=== PATIENT | male | born 1960 | race African-American/Black ===

== ENCOUNTER 2018-01-24 18:21 | Inpatient (IN) | payer OTHER ==
[2018-01-24 20:21] VITALS: BMI 25.7
--- NOTE | 2018-01-24 20:50 | HP ---
COWS - Scale Resting Pulse: 1= [place] 81-100 Sweatin= Chills/Flushing Restless Observation: 1= Difficult to Sit Still Pupil Size: 0= Normal to Room Light Bone or Joint Aches: 1= Mild Discomfort Runny Nose/ Eye Tearin= Runny Nose/Eyes GI Upset > 30mins: 2= Nausea/Diarrhea Tremor Observation: 1= Tremor [place], Not Seen Yawning Observation: 1= 1-2x During Session Anxiety or Irritability: 2=Irritable/Anxious Goose Flesh Skin: 0=Smooth Skin COWS Score: 12 Admission ROS S - HPI Chief Complaint: opioid withdrawal symptoms Allergies/Adverse Reactions: Allergies Allergy/AdvReac Type Severity Reaction Status Date / Time No Known Allergies Allergy Verified 01/24/18 21:02 History of Present Illness: 58 yo male with hx of heroin dependence is here seeking detox for the first time. Patient was recently discharged from [facility] today after a CHF exacerbation, during his stay patient was kept on methadone, and was referred for detox after his last hospital admission. PMHX: HTN, CHF, anemia, HDL, STENT x2 (2012), A-fib. Denies any psychiatric problems. Denies suicidal / homicidal ideation or hx of suicide attempts. Denies hx of seizures, blackouts or overdose. Longest period of sobriety 2 years reports recently relapsed two months ago. Exam Limitations: No Limitations - Ebola screening Have you been sick,other than usual withdrawal symptoms: No - Review of Systems Constitutional: Chills, Loss of Appetite, Changes in sleep EENT: reports: Dental Problems (missing teeth) Respiratory: reports: See HPI Cardiac: reports: Lightheadedness GI: reports: Diarrhea, Poor Appetite, Poor Fluid Intake, Abdominal cramping : reports: No Symptoms Reported Musculoskeletal: reports: Back Pain Integumentary: reports: No Symptoms Reported Neuro: reports: Headache Endocrine: reports: Increased Thirst Hematology: reports: See HPI Psychiatric: reports: Orientated x3, Anxious, Depressed Other Systems: Reviewed and Negative Patient History - Patient Medical History Hx Anemia: Yes Hx Asthma: No Hx Chronic Obstructive Pulmonary Disease (COPD): No Hx Cancer: No Hx Cardiac Disorders: Yes (hx of STENT x 2, A-fib, CHF) Hx Congestive Heart Failure: Yes Hx Hypertension: Yes Hx Hypercholesterolemia: Yes Hx Pacemaker: Yes (Defibrilator (L)) HX Cerebrovascular Accident: No Hx Seizures: No Hx Dementia: No Hx Diabetes: No Hx Gastrointestinal Disorders: No Hx Liver Disease: No Hx Genitourinary Disorders: No Hx Sexually Transmitted Disorders: No Hx Renal Disease (ESRD): No Hx Thyroid Disease: No Hx Human Immunodeficiency Virus (HIV): No (Last tested three weeks ago ) Hx Hepatitis C: No Hx Depression: Yes Hx Suicide Attempt: No Hx Bipolar Disorder: No Hx Schizophrenia: No - Patient Surgical History Past Surgical History: Yes Hx Neurologic Surgery: No Hx Cataract Extraction: No Hx Cardiac Surgery: Yes (STENT x 2 (2012), Defibrilator placement (2014)) Hx Lung Surgery: No Hx Breast Surgery: No Hx Breast Biopsy: No Hx Abdominal Surgery: No Hx Appendectomy: No Hx Cholecystectomy: No Hx Genitourinary Surgery: No Hx Orthopedic Surgery: No Anesthesia Reaction: No - PPD History Previous Implant?: No (TB expose tx with INH (2009)) Documented Results: Positive w/o proof PPD to be Administered?: No - Smoking Cessation Smoking history: Current every day smoker Have you smoked in the past 12 months: Yes Aproximately how many cigarettes per day: 10 Hx Chewing Tobacco Use: No Initiated information on smoking cessation: Yes 'Breaking Loose' booklet given: 01/24/18 - Substance & Tx. History Hx Alcohol Use: Yes Hx Substance Use: Yes Substance Use Type: Heroin Hx Substance Use Treatment: No - Substances Abused Heroin Route: Inhalation Frequency: Daily Amount used: 8 bags Age of first use: 12 Date of Last Use: 01/14/18 (Patient was admitted to [facility] for CHF exacerbation) Family Disease History - Family Disease History Family History: Unable to Obtain Admission Physical Exam S - Vital Signs Vital Signs: Vital Signs - 24 hr 01/24/18 20:20 Temperature 98.0 F Pulse Rate 90 Respiratory 18 Rate Blood Pressure 125/68 - Physical General Appearance: Yes: Disheveled, Mild Distress, Thin, Sweating, Anxious HEENTM: Yes: EOMI, Hearing grossly Normal, Normal ENT Inspection, Normal Voice, SHIRA, Pharynx Normal, Tm's normal, Rhinorrhea, Other (poor dentitionn) Respiratory: Yes: Chest Non-Tender, Lungs Clear, Normal Breath Sounds, No Respiratory Distress, No Accessory Muscle Use Neck: Yes: Within Normal Limits Breast: Yes: Breast Exam Deferred Cardiology: Yes: Regular Rate, Gallop/S3 Abdominal: Yes: Normal Bowel Sounds, Non Tender, Soft, Protuberent Genitourinary: Yes: Within Normal Limits Back: Yes: Normal Inspection Musculoskeletal: Yes: full range of Motion, Gait Steady, Pelvis Stable, Back pain Extremities: Yes: Normal Capillary Refill, Normal Inspection, Normal Range of Motion, Non-Tender Neurological: Yes: customer counter associate II-XII NML intact, Fully Oriented, Alert, Motor Strength 5/5, Normal Response, Depressed Affect Integumentary: Yes: Normal Color, Warm, Diaphoresis Lymphatic: Yes: Within Normal Limits - Diagnostic (1) CHF (congestive heart failure) Current Visit: Yes Status: Chronic Qualifiers: Heart failure type: unspecified (2) HTN (hypertension) Current Visit: Yes Status: Chronic Qualifiers: Hypertension type: essential hypertension Qualified Code(s): I10 - Essential (primary) hypertension (3) Atrial fibrillation Current Visit: Yes Status: Chronic Qualifiers: Atrial fibrillation type: unspecified Qualified Code(s): I48.91 - Unspecified atrial fibrillation (4) Presence of cardiac defibrillator Current Visit: Yes Status: Chronic (5) Hyperlipidemia Current Visit: Yes Status: Acute (6) History of treatment for tuberculosis Current Visit: Yes Status: Chronic (7) Opioid dependence with withdrawal Current Visit: Yes Status: Acute Cleared for Admission [facility] - Detox or Rehab [facility] Level of Care: Medically Managed Detox Regimen/Protocol: Methadone [facility] Breath Alcohol Content Breath Alcohol Content: 0 Urine Drug Screen - Results Drug Screen Negative: No Urine Drug Screen Results: MTD-Methadone
[2018-01-24] MEDS ORDERED: MAG HYDROX/AL HYDROX/SIMETH 30 ML UNIT-DOSE CUP PO PRN (21:03)
[2018-01-24] MEDS ORDERED: P-EPHED 60MG/TRIPROLIDI 2.5MG TABLET PO PRN (21:03)
[2018-01-24] MEDS ORDERED: guaiFENesin/D-METHORPHAN HB 10 ML UNIT-DOSE CUPS PO PRN (21:03)
[2018-01-24] MEDS ORDERED: MAGNESIUM HYDROX 2400MG/30ML ORAL SUSPENSION 30 ML CUP PO PRN (21:03)
[2018-01-24] MEDS ORDERED: MAGNESIUM CITRATE 300 ML BOTTLE PO PRN (21:03)
[2018-01-24] MEDS ORDERED: MENTHOL/PHENOL 1 EACH UD MM PRN (21:03)
[2018-01-24] MEDS ORDERED: LOPERAMIDE HCL 2 MG CAPSULE PO PRN (21:03)
[2018-01-24] MEDS ORDERED: IBUPROFEN 400 MG TABLET (FP) PO PRN (21:03)
[2018-01-24] MEDS ORDERED: METHADONE HCL 10 MG TABLET (FOR DETOX USE ONLY) PO ONE ×2 (22:15→23:00)
[2018-01-24] MEDS ORDERED: NITROGLYCERIN SUBLINGUAL 1/150 0.4 MG TAB SL PRN (22:30)
--- NOTE | 2018-01-24 22:40 | PN ---
S Progress Note Note: Patient missed today's elequis dose. PM dose 5 mg ordered,. Continue to monitor.
[2018-01-24] MEDS: ASPIRIN 81 MG CHEWABLE TABLETS PO SCH (23:05)
[2018-01-24] MEDS: THIAMINE HCL 100 MG TABLET (FP) PO SCH (23:05)
[2018-01-24] MEDS: APIXABAN 5 MG TABLET PO SCH (23:07)
[2018-01-24] MEDS: MELATONIN 5 MG TABLETS PO PRN (23:14)
[2018-01-24] MEDS: ACETAMINOPHEN 325 MG TABLET (FP) PO PRN (23:15)
[2018-01-25 01:23] LABS: URINE APPEARANCE CLEAR; URINE BILIRUBIN NEGATIVE (<2.0 mg/dL); URINE COLOR LTYELLOW; URINE GLUCOSE (UA) NEGATIVE (NEGATIVE); URINE KETONE NEGATIVE (NEGATIVE); URINE LEUK ESTERASE NEGATIVE (NEGATIVE); URINE NITRITE NEGATIVE (NEGATIVE); URINE PROTEIN NEGATIVE (NEGATIVE); URINE UROBILINOGEN NEGATIVE mg/dL (0.2-1.0)
[2018-01-25] MEDS ORDERED: APIXABAN 5 MG TABLET PO SCH (10:00)
[2018-01-25] MEDS ORDERED: METHADONE HCL 10 MG TABLET (FOR DETOX USE ONLY) PO ONE (10:00)
[2018-01-25] MEDS ORDERED: FERROUS SO4 325 MG TABLET (FP) PO SCH (10:00)
[2018-01-25] MEDS: ASPIRIN 81 MG CHEWABLE TABLETS PO SCH (10:09)
[2018-01-25] MEDS: SPIRONOLACTONE 25 MG TABLET (FP) PO SCH (10:09)
[2018-01-25] MEDS: METOPROLOL TARTRATE 25 MG TABLET (FP) PO SCH (10:10)
[2018-01-25] MEDS: PRENATAL VITAMINS W/ FOLIC ACID TABLET (FP) PO SCH (10:10)
[2018-01-25] MEDS: LISINOPRIL 10 MG TABLET (FP) PO SCH (10:10)
[2018-01-25] MEDS: NICOTINE 14 MG/24 HOURS TOPICAL PATCH TD SCH (10:10)
[2018-01-25] MEDS: FUROSEMIDE 40 MG TABLET (FP) PO SCH (10:10)
[2018-01-25] MEDS: ISOSORBIDE MONONITRATE 30 MG TAB.SR.24H (FP) PO SCH (10:10)
[2018-01-25 10:17] LABS: CHLORIDE 109 mmol/L (98-107); POTASSIUM 4.5 mmol/L (3.5-5.1); SODIUM 145 mmol/L (136-145)
[2018-01-25 10:32] LABS: ALBUMIN 2.9 g/dl (3.4-5.0); ALK PHOS 78 U/L (45-117); ANION GAP 8 MMOL/L (8-16); BILIRUBIN,TOTAL 0.7 mg/dL (0.2-1.0); BLOOD UREA NITROGEN 23 mg/dL (7-18); CALCIUM 8.9 mg/dL (8.5-10.1); CO2 28 mmol/L (21-32); CREATININE 0.9 mg/dL (0.7-1.3); GLUCOSE,RANDOM 69 mg/dL (74-106); SGOT/AST 16 U/L (15-37); SGPT/ALT 17 U/L (12-78)
[2018-01-25 10:33] LABS: HEMATOCRIT 29.3 % (35.4-49); HEMOGLOBIN 9.8 GM/dL (11.7-16.9); MCH 25.3 pg (25.7-33.7); MCHC 33.3 g/dl (32.0-35.9); MEAN PLT VOLUME 9.1 fl (7.5-11.1); PLATELET COUNT 168 K/MM3 (134-434); RBC 3.85 M/mm3 (4.00-5.60); RDW 26.6 % (11.9-15.9); WHITE BLOOD COUNT 3.1 K/mm3 (4.0-10.0)
[2018-01-25] MEDS: APIXABAN 5 MG TABLET PO SCH ×2 (11:00→22:10)
--- NOTE | 2018-01-25 12:14 | CONSULT ---
[facility] Psychiatric Consult - Data Date of interview: 01/25/18 Admission source: [facility] Identifying data: First admission to [facility] for this 58 y/o AA male seeking detox treatment on for opioid dependence.Patientis single without dependents,homeless,unemployed and evasive about his source of income. Substance Abuse History: Confirmed by patient in this interview : Smoking history: Current every day smoker. Have you smoked in the past 12 months: Yes. Aproximately how many cigarettes per day: 10. Hx Chewing Tobacco Use: No. Initiated information on smoking cessation: Yes. 'Breaking Loose' booklet given : 01/24/18. - Substance & Tx. History. Hx Alcohol Use: Yes. Hx Substance Use : Yes. Substance Use Type: Heroin. Hx Substance Use Treatment: No. - Substances Abused. Heroin. Route: Inhalation. Frequency: Daily. Amount used: 8 bags. Age of first use: 12. Date of Last Use: 01/14/18 (Patient was admitted to [facility] for CHF exacerbation) Medical History: Multiple co-morbidities : hypertension,dyslipidemia,anemia,CHF, atrial fibrillation (pacemaker in place),cardiac stents and a history of treatment for tuberculosis (INH protocol) in 2009. Psychiatric History: Patient denies. Physical/Sexual Abuse/Trauma History: No history reported. Additional Comment: Urine Drug Screen Results: MTD-Methadone.Noted. Mental Status Exam - Mental Status Exam Alert and Oriented to: Time, Place, Person Cognitive Function: Grossly Intact Patient Appearance: Well Groomed Mood: Angry, Hostile, Withdrawn, Irritable Affect: Mood Congruent, Constricted Patient Behavior: Fatigued, Uncooperative, Guarded Speech Pattern: Clear Voice Loudness: Normal Thought Process: Goal Oriented Thought Disorder: Not Present Hallucinations: Denies Suicidal Ideation: Denies Homicidal Ideation: Denies Insight/Judgement: Poor Sleep: Well Appetite: Good Gait/Station: Other (not observed; patient declines to get out of bed as instructed by interviewer) Psychiatric Findings - Problem List ([facility] 1, 2,3) (1) Opioid dependence with withdrawal Current Visit: Yes Status: Acute (2) Nicotine dependence Current Visit: Yes Status: Acute - Initial Treatment Plan Initial Treatment Plan: Psychoeducation.Sleep hygiene.Detoxification.Observation.
--- NOTE | 2018-01-25 16:35 | PN ---
BHS COWS - Scale Resting Pulse: 1= [place] 81-100 Sweatin= Chills/Flushing Restless Observation: 1= Difficult to Sit Still Pupil Size: 0= Normal to Room Light Bone or Joint Aches: 2= Severe Diffuse Aches Runny Nose/ Eye Tearin= None GI Upset > 30mins: 0= None Tremor Observation of Outstretched Hands: 2= Slight Tremor Visible Yawning Observation: 1= 1-2x During Session Anxiety or Irritability: 2=Irritable/Anxious Goose Flesh Skin: 3=Piloerection COWS Score: 13 BHS Progress Note (SOAP) Subjective: Body Aches, Interrupted Sleep, Tremors. Objective: PATIENT A & O X 3, OBSERVED AMBULATING ON UNIT. NO ACUTE DISTRESS. PATIENT DENIES CHEST PAIN. PATIENT REPORTS THAT HE WAS LAST EVALUATED BY MEDICAL PROVIDER FOR HISTORY OF CARDIAC DISEASE, INCLUDING A-FIB, APPROX. 2 MONTHS AGO. 01/25/18 16:31 Vital Signs Temperature 97.0 F L 01/25/18 15:36 Pulse Rate 80 01/25/18 15:36 Respiratory Rate 18 01/25/18 15:36 Blood Pressure 103/55 01/25/18 15:36 O2 Sat by Pulse Oximetry (%) Laboratory Tests 01/24/18 01/25/18 01/25/18 22:54 08:00 08:00 WBC 3.1 L RBC 3.85 L Hgb 9.8 L Hct 29.3 L MCV 76.0 L MCH 25.3 L MCHC 33.3 RDW 26.6 H Plt Count 168 MPV 9.1 Sodium 145 Potassium 4.5 Chloride 109 H Carbon Dioxide 28 Anion Gap 8 BUN 23 H Creatinine 0.9 Creat Clearance w eGFR > 60 Random Glucose 69 L Calcium 8.9 Total Bilirubin 0.7 AST 16 ALT 17 Alkaline Phosphatase 78 Total Protein 6.0 L Albumin 2.9 L Urine Color Ltyellow Urine Appearance Clear Urine pH 6.0 Ur Specific [place] 1.015 Urine Protein Negative Urine Glucose (UA) Negative Urine Ketones Negative Urine Blood Negative Urine Nitrite Negative Urine Bilirubin Negative Urine Urobilinogen Negative Ur Leukocyte Esterase Negative RPR Titer 01/25/18 08:00 WBC RBC Hgb Hct MCV MCH MCHC RDW Plt Count MPV Sodium Potassium Chloride Carbon Dioxide Anion Gap BUN Creatinine Creat Clearance w eGFR Random Glucose Calcium Total Bilirubin AST ALT Alkaline Phosphatase Total Protein Albumin Urine Color Urine Appearance Urine pH Ur Specific [place] Urine Protein Urine Glucose (UA) Urine Ketones Urine Blood Urine Nitrite Urine Bilirubin Urine Urobilinogen Ur Leukocyte Esterase RPR Titer Nonreactive LABS NOTED. 01/25/18 16:32 Assessment: 01/25/18 16:31 WITHDRAWAL SYMPTOMS. LEUKOPENIA. ANEMIA. 01/25/18 16:34 Plan: CONTINUE DETOX. INCREASE FEOSOL TO BIDWM. REPEAT CBC ON 01/27/2018 FOR ADMISSION ABNORMALITIES.
[2018-01-25] MEDS: FERROUS SO4 325 MG TABLET (FP) PO SCH (18:12)
--- NOTE | 2018-01-25 18:50 | EKG ---
Test Reason : Blood Pressure : / mmHG Vent. Rate : 075 BPM Atrial Rate : 070 BPM P-R Int : 000 ms QRS Dur : 128 ms QT Int : 422 ms P-R-T Axes : 000 -46 172 degrees QTc Int : 471 ms ATRIAL FIBRILLATION LEFT AXIS DEVIATION NON-SPECIFIC INTRA-VENTRICULAR CONDUCTION BLOCK T WAVE ABNORMALITY, CONSIDER LATERAL ISCHEMIA ABNORMAL ECG WHEN COMPARED WITH ECG OF 24-JAN-2018 22:30, NONSPECIFIC T WAVE ABNORMALITY NOW EVIDENT IN INFERIOR LEADS Confirmed by GISEL DOMINGO MD ([id number]) on 01/25/2018 6:50:03 PM Referred By: Azael Nur Confirmed By:GISEL DOMINGO MD
--- NOTE | 2018-01-25 19:05 | EKG ---
Test Reason : Blood Pressure : / mmHG Vent. Rate : 104 BPM Atrial Rate : 117 BPM P-R Int : 000 ms QRS Dur : 124 ms QT Int : 364 ms P-R-T Axes : 000 -53 118 degrees QTc Int : 478 ms ATRIAL FIBRILLATION WITH RAPID VENTRICULAR RESPONSE LEFT ANTERIOR FASCICULAR BLOCK ABNORMAL ECG NO PREVIOUS ECGS AVAILABLE Confirmed by GISEL DOMINGO MD ([id number]) on 01/25/2018 7:05:16 PM Referred By: Azael Nur Confirmed By:GISEL DOMINGO MD
[2018-01-25] MEDS: ATORVASTATIN CA 80 MG TABLET (FP) PO SCH (22:10)
[2018-01-25] MEDS: AMMONIUM LACTATE 12% LOTION 225 GM BOTTLE TP SCH (22:10)
[2018-01-25] MEDS: THIAMINE HCL 100 MG TABLET (FP) PO SCH (22:10)
[2018-01-25] MEDS: MELATONIN 5 MG TABLETS PO PRN (22:11)
[2018-01-26] MEDS: FERROUS SO4 325 MG TABLET (FP) PO SCH ×2 (07:54→18:01)
[2018-01-26] MEDS ORDERED: METHADONE HCL 5 MG TABLET (FOR DETOX USE ONLY) PO ONE (10:00)
[2018-01-26] MEDS: METOPROLOL TARTRATE 25 MG TABLET (FP) PO SCH (10:07)
[2018-01-26] MEDS: PRENATAL VITAMINS W/ FOLIC ACID TABLET (FP) PO SCH (10:07)
[2018-01-26] MEDS: ISOSORBIDE MONONITRATE 30 MG TAB.SR.24H (FP) PO SCH (10:07)
[2018-01-26] MEDS: LISINOPRIL 10 MG TABLET (FP) PO SCH (10:07)
[2018-01-26] MEDS: ASPIRIN 81 MG CHEWABLE TABLETS PO SCH (10:07)
[2018-01-26] MEDS: APIXABAN 5 MG TABLET PO SCH ×2 (10:07→22:24)
[2018-01-26] MEDS: FUROSEMIDE 40 MG TABLET (FP) PO SCH (10:07)
[2018-01-26] MEDS: SPIRONOLACTONE 25 MG TABLET (FP) PO SCH (10:07)
[2018-01-26] MEDS: NICOTINE 14 MG/24 HOURS TOPICAL PATCH TD SCH (10:08)
[2018-01-26] MEDS: AMMONIUM LACTATE 12% LOTION 225 GM BOTTLE TP SCH ×2 (10:08→22:06)
--- NOTE | 2018-01-26 15:21 | PN ---
BHS COWS - Scale Resting Pulse: 0= MD 80 or Below Sweatin= Chills/Flushing Restless Observation: 3= Extraneous Movement Pupil Size: 1= Pupils >than Normal Bone or Joint Aches: 2= Severe Diffuse Aches Runny Nose/ Eye Tearin= Runny Nose/Eyes GI Upset > 30mins: 3= Vomiting/Diarrhea Tremor Observation of Outstretched Hands: 2= Slight Tremor Visible Yawning Observation: 1= 1-2x During Session Anxiety or Irritability: 2=Irritable/Anxious Goose Flesh Skin: 0=Smooth Skin COWS Score: 17 S Progress Note (SOAP) Subjective: Interrupted sleep, diarrhea, nausea, chills Objective: 01/26/18 15:20 Last Vital Signs Temp Pulse Resp BP Pulse Ox 97.1 F L 76 18 104/63 01/26/18 15:03 01/26/18 15:03 01/26/18 15:03 01/26/18 15:03 Laboratory Tests 01/24/18 01/25/18 01/25/18 22:54 08:00 08:00 WBC 3.1 L RBC 3.85 L Hgb 9.8 L Hct 29.3 L MCV 76.0 L MCH 25.3 L MCHC 33.3 RDW 26.6 H Plt Count 168 MPV 9.1 Sodium 145 Potassium 4.5 Chloride 109 H Carbon Dioxide 28 Anion Gap 8 BUN 23 H Creatinine 0.9 Creat Clearance w eGFR > 60 Random Glucose 69 L Calcium 8.9 Total Bilirubin 0.7 AST 16 ALT 17 Alkaline Phosphatase 78 Total Protein 6.0 L Albumin 2.9 L Urine Color Ltyellow Urine Appearance Clear Urine pH 6.0 Ur Specific [place] 1.015 Urine Protein Negative Urine Glucose (UA) Negative Urine Ketones Negative Urine Blood Negative Urine Nitrite Negative Urine Bilirubin Negative Urine Urobilinogen Negative Ur Leukocyte Esterase Negative RPR Titer 01/25/18 08:00 WBC RBC Hgb Hct MCV MCH MCHC RDW Plt Count MPV Sodium Potassium Chloride Carbon Dioxide Anion Gap BUN Creatinine Creat Clearance w eGFR Random Glucose Calcium Total Bilirubin AST ALT Alkaline Phosphatase Total Protein Albumin Urine Color Urine Appearance Urine pH Ur Specific [place] Urine Protein Urine Glucose (UA) Urine Ketones Urine Blood Urine Nitrite Urine Bilirubin Urine Urobilinogen Ur Leukocyte Esterase RPR Titer Nonreactive Labs reviewed: bun 23 Assessment: 01/26/18 15:21 Withdrawal symptoms Noted with Azotemia Plan: Continue detox Azotemia: encouraged PO water hydration
[2018-01-26] MEDS: ACETAMINOPHEN 325 MG TABLET (FP) PO PRN (18:03)
[2018-01-26] MEDS: THIAMINE HCL 100 MG TABLET (FP) PO SCH (22:24)
[2018-01-26] MEDS: ATORVASTATIN CA 80 MG TABLET (FP) PO SCH (22:24)
[2018-01-27] MEDS ORDERED: METHADONE HCL 5 MG TABLET (FOR DETOX USE ONLY) PO ONE (10:00)
[2018-01-27] MEDS: ISOSORBIDE MONONITRATE 30 MG TAB.SR.24H (FP) PO SCH (10:16)
[2018-01-27] MEDS: LISINOPRIL 10 MG TABLET (FP) PO SCH (10:16)
[2018-01-27] MEDS: ASPIRIN 81 MG CHEWABLE TABLETS PO SCH (10:16)
[2018-01-27] MEDS: AMMONIUM LACTATE 12% LOTION 225 GM BOTTLE TP SCH ×2 (10:16→22:19)
[2018-01-27] MEDS: FUROSEMIDE 40 MG TABLET (FP) PO SCH (10:16)
[2018-01-27] MEDS: diazePAM 5 MG TABLET PO PRN ×2 (10:16→18:08)
[2018-01-27] MEDS: METOPROLOL TARTRATE 25 MG TABLET (FP) PO SCH (10:16)
[2018-01-27] MEDS: PRENATAL VITAMINS W/ FOLIC ACID TABLET (FP) PO SCH (10:16)
[2018-01-27] MEDS: APIXABAN 5 MG TABLET PO SCH ×2 (10:16→22:19)
[2018-01-27] MEDS: FERROUS SO4 325 MG TABLET (FP) PO SCH ×2 (10:16→18:06)
[2018-01-27] MEDS: SPIRONOLACTONE 25 MG TABLET (FP) PO SCH (10:16)
[2018-01-27] MEDS: NICOTINE 14 MG/24 HOURS TOPICAL PATCH TD SCH (10:17)
[2018-01-27 10:26] LABS: HEMATOCRIT 30.7 % (35.4-49); HEMOGLOBIN 9.9 GM/dL (11.7-16.9); MCH 24.8 pg (25.7-33.7); MCHC 32.3 g/dl (32.0-35.9); MEAN CELL VOLUME 76.7 fl (80-96); MEAN PLT VOLUME 9.1 fl (7.5-11.1); PLATELET COUNT 181 K/MM3 (134-434); RDW 26.6 % (11.9-15.9); WHITE BLOOD COUNT 4.3 K/mm3 (4.0-10.0)
--- NOTE | 2018-01-27 11:12 | PN ---
BHS Progress Note (SOAP) Subjective: MUSCLE ACHES,HOT/COLD CHILLS,FATIGUE. Objective: 01/27/18 11:09 Vital Signs 01/27/18 01/27/18 06:09 09:17 Temperature 97 F L 97.7 F Pulse Rate 69 95 H Respiratory 18 20 Rate Blood Pressure 137/80 131/86 Laboratory Tests 01/24/18 01/25/18 01/25/18 22:54 08:00 08:00 WBC 3.1 L RBC 3.85 L Hgb 9.8 L Hct 29.3 L MCV 76.0 L MCH 25.3 L MCHC 33.3 RDW 26.6 H Plt Count 168 MPV 9.1 Neutrophils % Lymphocytes % Nucleated RBC % Sodium 145 Potassium 4.5 Chloride 109 H Carbon Dioxide 28 Anion Gap 8 BUN 23 H Creatinine 0.9 Creat Clearance w eGFR > 60 Random Glucose 69 L Calcium 8.9 Total Bilirubin 0.7 AST 16 ALT 17 Alkaline Phosphatase 78 Total Protein 6.0 L Albumin 2.9 L Urine Color Ltyellow Urine Appearance Clear Urine pH 6.0 Ur Specific [place] 1.015 Urine Protein Negative Urine Glucose (UA) Negative Urine Ketones Negative Urine Blood Negative Urine Nitrite Negative Urine Bilirubin Negative Urine Urobilinogen Negative Ur Leukocyte Esterase Negative RPR Titer 01/25/18 01/27/18 08:00 07:00 WBC 4.3 RBC 4.00 Hgb 9.9 L Hct 30.7 L MCV 76.7 L MCH 24.8 L MCHC 32.3 RDW 26.6 H Plt Count 181 MPV 9.1 Neutrophils % No Result Required. Lymphocytes % No Result Required. Nucleated RBC % 0 Sodium Potassium Chloride Carbon Dioxide Anion Gap BUN Creatinine Creat Clearance w eGFR Random Glucose Calcium Total Bilirubin AST ALT Alkaline Phosphatase Total Protein Albumin Urine Color Urine Appearance Urine pH Ur Specific [place] Urine Protein Urine Glucose (UA) Urine Ketones Urine Blood Urine Nitrite Urine Bilirubin Urine Urobilinogen Ur Leukocyte Esterase RPR Titer Nonreactive REPEAT LABS NOTED. PT ON FEOSOL Assessment: 01/27/18 11:10 WITHDRAWAL SX Plan: CONTINUE DETOX FOLLOW UP WITH [facility] AFTER DETOX FOR MEDICAL MANAGEMENT.
[2018-01-27 12:53] LABS: ANISOCYTOSIS 1+; MACROCYTOSIS 0; PLATELET ESTIMATE NORMAL; TARGET CELLS 2+
[2018-01-27] MEDS: THIAMINE HCL 100 MG TABLET (FP) PO SCH (22:19)
[2018-01-27] MEDS: ATORVASTATIN CA 80 MG TABLET (FP) PO SCH (22:19)
[2018-01-27] MEDS: ACETAMINOPHEN 325 MG TABLET (FP) PO PRN (22:20)
[2018-01-27] MEDS: MELATONIN 5 MG TABLETS PO PRN (22:21)
[2018-01-28] MEDS: FERROUS SO4 325 MG TABLET (FP) PO SCH ×2 (07:38→17:32)
[2018-01-28] MEDS ORDERED: METHADONE HCL 10 MG TABLET (FOR DETOX USE ONLY) PO ONE (10:00)
[2018-01-28] MEDS: ASPIRIN 81 MG CHEWABLE TABLETS PO SCH (10:22)
[2018-01-28] MEDS: SPIRONOLACTONE 25 MG TABLET (FP) PO SCH (10:22)
[2018-01-28] MEDS: PRENATAL VITAMINS W/ FOLIC ACID TABLET (FP) PO SCH (10:22)
[2018-01-28] MEDS: FUROSEMIDE 40 MG TABLET (FP) PO SCH (10:22)
[2018-01-28] MEDS: LISINOPRIL 10 MG TABLET (FP) PO SCH (10:22)
[2018-01-28] MEDS: APIXABAN 5 MG TABLET PO SCH ×2 (10:22→22:06)
[2018-01-28] MEDS: METOPROLOL TARTRATE 25 MG TABLET (FP) PO SCH (10:22)
[2018-01-28] MEDS: ISOSORBIDE MONONITRATE 30 MG TAB.SR.24H (FP) PO SCH (10:23)
[2018-01-28] MEDS: NICOTINE 14 MG/24 HOURS TOPICAL PATCH TD SCH (10:25)
[2018-01-28] MEDS: AMMONIUM LACTATE 12% LOTION 225 GM BOTTLE TP SCH ×2 (10:25→22:07)
--- NOTE | 2018-01-28 11:15 | PN ---
BHS Progress Note (SOAP) Subjective: ANXIETY,FATIGUE. Objective: 01/28/18 11:15 Vital Signs 01/28/18 01/28/18 06:14 10:09 Temperature 97.3 F L 98.1 F Pulse Rate 77 75 Respiratory 18 18 Rate Blood Pressure 112/79 132/82 Laboratory Tests 01/24/18 01/25/18 01/25/18 22:54 08:00 08:00 WBC 3.1 L RBC 3.85 L Hgb 9.8 L Hct 29.3 L MCV 76.0 L MCH 25.3 L MCHC 33.3 RDW 26.6 H Plt Count 168 MPV 9.1 Absolute Neuts (auto) Neutrophils % Neutrophils % (Manual) Band Neutrophils % Lymphocytes % Lymphocytes % (Manual) Monocytes % (Manual) Eosinophils % (Manual) Basophils % (Manual) Myelocytes % (Man) Promyelocytes % (Man) Blast Cells % (Manual) Nucleated RBC % Metamyelocytes Hypochromia Platelet Estimate Polychromasia Poikilocytosis Anisocytosis Microcytosis Macrocytosis Target Cells Schistocytes Sodium 145 Potassium 4.5 Chloride 109 H Carbon Dioxide 28 Anion Gap 8 BUN 23 H Creatinine 0.9 Creat Clearance w eGFR > 60 Random Glucose 69 L Calcium 8.9 Total Bilirubin 0.7 AST 16 ALT 17 Alkaline Phosphatase 78 Total Protein 6.0 L Albumin 2.9 L Urine Color Ltyellow Urine Appearance Clear Urine pH 6.0 Ur Specific [place] 1.015 Urine Protein Negative Urine Glucose (UA) Negative Urine Ketones Negative Urine Blood Negative Urine Nitrite Negative Urine Bilirubin Negative Urine Urobilinogen Negative Ur Leukocyte Esterase Negative RPR Titer 01/25/18 01/27/18 08:00 07:00 WBC 4.3 RBC 4.00 Hgb 9.9 L Hct 30.7 L MCV 76.7 L MCH 24.8 L MCHC 32.3 RDW 26.6 H Plt Count 181 MPV 9.1 Absolute Neuts (auto) 2.1 Neutrophils % No Result Required. Neutrophils % (Manual) 44.9 Band Neutrophils % 0.0 Lymphocytes % No Result Required. Lymphocytes % (Manual) 38.8 Monocytes % (Manual) 12 H Eosinophils % (Manual) 1.0 Basophils % (Manual) 0.0 Myelocytes % (Man) 2 Promyelocytes % (Man) 0 Blast Cells % (Manual) 0 Nucleated RBC % 0 Metamyelocytes 0 Hypochromia 1+ Platelet Estimate Normal Polychromasia 1+ Poikilocytosis 1+ Anisocytosis 1+ Microcytosis 1+ Macrocytosis 0 Target Cells 2+ Schistocytes 1+ Sodium Potassium Chloride Carbon Dioxide Anion Gap BUN Creatinine Creat Clearance w eGFR Random Glucose Calcium Total Bilirubin AST ALT Alkaline Phosphatase Total Protein Albumin Urine Color Urine Appearance Urine pH Ur Specific [place] Urine Protein Urine Glucose (UA) Urine Ketones Urine Blood Urine Nitrite Urine Bilirubin Urine Urobilinogen Ur Leukocyte Esterase RPR Titer Nonreactive CXR-NEGATIVE Assessment: 01/28/18 11:16 WITHDRAWAL SX Plan: CONTINUE DETOX
[2018-01-28] MEDS: ATORVASTATIN CA 80 MG TABLET (FP) PO SCH (22:06)
[2018-01-28] MEDS: MELATONIN 5 MG TABLETS PO PRN (22:06)
[2018-01-28] MEDS: THIAMINE HCL 100 MG TABLET (FP) PO SCH (22:06)
[2018-01-29] MEDS ORDERED: METHADONE HCL 5 MG TABLET (FOR DETOX USE ONLY) PO ONE (06:00)
[2018-01-29] MEDS: FERROUS SO4 325 MG TABLET (FP) PO SCH (07:55)
--- NOTE | 2018-01-29 10:16 | PN ---
S Progress Note (SOAP) Subjective: DETOX COMPLETED. ALERT O X 3. PT REPORTS HE GOES TO [facility] FOR PRIMARY CARE AND HIS MEDICATIONS ARE RX TO PHARMACY FOR DIRECT DELIVERY TO HIM MONTHLY. Objective: 01/29/18 10:15 Vital Signs 01/29/18 01/29/18 01/29/18 03:30 06:30 06:32 Temperature 98.1 F Pulse Rate 108 H Respiratory 18 18 18 Rate Blood Pressure 114/73 01/29/18 09:58 Temperature 98.7 F Pulse Rate 101 H Respiratory 20 Rate Blood Pressure 148/86 Laboratory Tests 01/24/18 01/25/18 01/25/18 22:54 08:00 08:00 WBC 3.1 L RBC 3.85 L Hgb 9.8 L Hct 29.3 L MCV 76.0 L MCH 25.3 L MCHC 33.3 RDW 26.6 H Plt Count 168 MPV 9.1 Absolute Neuts (auto) Neutrophils % Neutrophils % (Manual) Band Neutrophils % Lymphocytes % Lymphocytes % (Manual) Monocytes % (Manual) Eosinophils % (Manual) Basophils % (Manual) Myelocytes % (Man) Promyelocytes % (Man) Blast Cells % (Manual) Nucleated RBC % Metamyelocytes Hypochromia Platelet Estimate Polychromasia Poikilocytosis Anisocytosis Microcytosis Macrocytosis Target Cells Schistocytes Sodium 145 Potassium 4.5 Chloride 109 H Carbon Dioxide 28 Anion Gap 8 BUN 23 H Creatinine 0.9 Creat Clearance w eGFR > 60 Random Glucose 69 L Calcium 8.9 Total Bilirubin 0.7 AST 16 ALT 17 Alkaline Phosphatase 78 Total Protein 6.0 L Albumin 2.9 L Urine Color Ltyellow Urine Appearance Clear Urine pH 6.0 Ur Specific [place] 1.015 Urine Protein Negative Urine Glucose (UA) Negative Urine Ketones Negative Urine Blood Negative Urine Nitrite Negative Urine Bilirubin Negative Urine Urobilinogen Negative Ur Leukocyte Esterase Negative RPR Titer 01/25/18 01/27/18 08:00 07:00 WBC 4.3 RBC 4.00 Hgb 9.9 L Hct 30.7 L MCV 76.7 L MCH 24.8 L MCHC 32.3 RDW 26.6 H Plt Count 181 MPV 9.1 Absolute Neuts (auto) 2.1 Neutrophils % No Result Required. Neutrophils % (Manual) 44.9 Band Neutrophils % 0.0 Lymphocytes % No Result Required. Lymphocytes % (Manual) 38.8 Monocytes % (Manual) 12 H Eosinophils % (Manual) 1.0 Basophils % (Manual) 0.0 Myelocytes % (Man) 2 Promyelocytes % (Man) 0 Blast Cells % (Manual) 0 Nucleated RBC % 0 Metamyelocytes 0 Hypochromia 1+ Platelet Estimate Normal Polychromasia 1+ Poikilocytosis 1+ Anisocytosis 1+ Microcytosis 1+ Macrocytosis 0 Target Cells 2+ Schistocytes 1+ Sodium Potassium Chloride Carbon Dioxide Anion Gap BUN Creatinine Creat Clearance w eGFR Random Glucose Calcium Total Bilirubin AST ALT Alkaline Phosphatase Total Protein Albumin Urine Color Urine Appearance Urine pH Ur Specific [place] Urine Protein Urine Glucose (UA) Urine Ketones Urine Blood Urine Nitrite Urine Bilirubin Urine Urobilinogen Ur Leukocyte Esterase RPR Titer Nonreactive Assessment: 01/29/18 10:15 MEDICALLY STABLE Plan: FOLLOW UP WITH REHAB AFTERCARE.
--- NOTE | 2018-01-29 10:19 | DS ---
[facility] Detox Discharge Summary Admission Date: 01/24/18 Discharge Date: 01/29/18 - History Present History: Opioid Dependence Additional Comments: DETOX COMPLETED. ALERT O X 3. NAD. PT WILL FOLLOW UP WITH HIS PRIMARY CARE AT [facility] FOR MEDICAL MANAGEMENT OF HIS COMORBID CONDITIONS NEEDED. - Physical Exam Results Vital Signs: Vital Signs Temperature 98.7 F 01/29/18 09:58 Pulse Rate 101 H 01/29/18 09:58 Respiratory Rate 20 01/29/18 09:58 Blood Pressure 148/86 01/29/18 09:58 O2 Sat by Pulse Oximetry (%) - Treatment Hospital Course: Detox Protocol Followed, Detoxed Safely, Responded well, Discharged Condition Good - Medication Discharge Medications: Ambulatory Orders Apixaban [Eliquis] 5 mg PO BID 01/24/18 Aspirin [ASA -] 81 mg PO DAILY 01/24/18 Atorvastatin Ca [Lipitor] 80 mg PO HS 01/24/18 Ferrous Sulfate [Feosol] 325 mg PO DAILY 01/24/18 Furosemide [Lasix -] 40 mg PO DAILY 01/24/18 Isosorbide Mononitrate [Imdur -] 30 mg PO DAILY 01/24/18 Lisinopril [Prinivil -] 10 mg PO DAILY 01/24/18 Metoprolol Tartrate [Lopressor -] 25 mg PO DAILY 01/24/18 Nitroglycerin 0.4 mg SL PRN 01/24/18 Spironolactone [Aldactone -] 25 mg PO DAILY 01/24/18 - Diagnosis (1) Opioid dependence with withdrawal Current Visit: Yes Status: Acute (2) Atrial fibrillation Current Visit: Yes Status: Chronic Qualifiers: Atrial fibrillation type: unspecified Qualified Code(s): I48.91 - Unspecified atrial fibrillation (3) CHF (congestive heart failure) Current Visit: Yes Status: Chronic Qualifiers: Heart failure type: unspecified Heart failure chronicity: chronic Qualified Code(s): I50.9 - Heart failure, unspecified (4) HTN (hypertension) Current Visit: Yes Status: Chronic Qualifiers: Hypertension type: essential hypertension Qualified Code(s): I10 - Essential (primary) hypertension (5) Hyperlipidemia Current Visit: Yes Status: Chronic Qualifiers: Hyperlipidemia type: unspecified Qualified Code(s): E78.5 - Hyperlipidemia , unspecified (6) Nicotine dependence Current Visit: Yes Status: Acute Qualifiers: Nicotine product type: cigarettes Substance use status: in withdrawal Qualified Code(s): F17.213 - Nicotine dependence, cigarettes, with withdrawal (7) Anemia Current Visit: Yes Status: Chronic - AMA Did Patient Leave Against Medical Advice: No
[2018-01-29] MEDS: LISINOPRIL 10 MG TABLET (FP) PO SCH (10:30)
[2018-01-29] MEDS: FUROSEMIDE 40 MG TABLET (FP) PO SCH (10:30)
[2018-01-29] MEDS: APIXABAN 5 MG TABLET PO SCH (10:30)
[2018-01-29] MEDS: PRENATAL VITAMINS W/ FOLIC ACID TABLET (FP) PO SCH (10:30)
[2018-01-29] MEDS: SPIRONOLACTONE 25 MG TABLET (FP) PO SCH (10:30)
[2018-01-29] MEDS: ASPIRIN 81 MG CHEWABLE TABLETS PO SCH (10:30)
[2018-01-29] MEDS: AMMONIUM LACTATE 12% LOTION 225 GM BOTTLE TP SCH (10:31)
[2018-01-29] MEDS: METOPROLOL TARTRATE 25 MG TABLET (FP) PO SCH (10:31)
[2018-01-29] MEDS: NICOTINE 14 MG/24 HOURS TOPICAL PATCH TD SCH (10:31)
[2018-01-29] MEDS: ISOSORBIDE MONONITRATE 30 MG TAB.SR.24H (FP) PO SCH (10:31)
[2018-01-29 13:42] VITALS: BP 117/67; PULSE 52; TEMP 97.4
== END 2018-01-29 15:35 | disposition home or self-care (01) | DRG 773 ==
LOC: YASAS 18:21 → Y3N 22:07
PROVIDERS: ADMIT Surgery; ATTEND Surgery
PROC: HZ2ZZZZ Detoxification Services for Substance Abuse Treatment (ICD-10-PCS; principal; 2018-01-24)
DX: F11.23 Opioid dependence with withdrawal (principal); F17.213 Nicotine dependence, cigarettes, with withdrawal; I10 Essential (primary) hypertension; I48.91 Unspecified atrial fibrillation; I50.9 Heart failure, unspecified; R78.5 Finding of other psychotropic drug in blood; D64.9 Anemia, unspecified; D72.819 Decreased white blood cell count, unspecified; R79.89 Other specified abnormal findings of blood chemistry; Z79.01 Long term (current) use of anticoagulants; Z86.11 Personal history of tuberculosis; Z95.810 Presence of automatic (implantable) cardiac defibrillator; Z95.5 Presence of coronary angioplasty implant and graft
CPT/HCPCS: 36415; 71046-TC-FY; 80053; 81003; 85025; 85027; 86593; 93005; 93010